=== PATIENT | male | born 1950 | race Caucasian/White ===

== ENCOUNTER 2017-04-03 05:37 | Emergency (ER) | payer MEDICARE ==
[~2017-04-03] VITALS: Ht 182.9 cm; Wt 90.7 kg
[~2017-04-03 05:37] MED LIST: TADA2.5T PO
--- NOTE | 2017-04-03 05:53 | ED Fall/Injury ---
General Chief Complaint: Laceration Stated Complaint: FALL,HEAD INJURY Source: patient, spouse Exam Limitations: no limitations (CLIFFORD GRIGSBY) History of Present Illness Time seen by provider: 05:43 Initial Comments Patient has ER by private conveyance with his because he had a fall just prior to arrival. He said he is experiencing some sharp cramp-like pain in the lower abdomen so he got up to go to the bathroom before going to work. He got up to go to the bathroom but was unable to have a bowel movement; he continued to have some pain as he started to stand up and subsequently the pain caused him to double over and fall forward landing with his forehead against the tile floor. He is not sure if he passed out but he remembers hitting the floor. He remembers lying there and he had to have his help him get up because he was weak after the fall. He had no nausea, shortness of breath, chest pain, cough, fevers or chills. The abdominal cramping pain has since gone away however he split his forehead open. He does not remember the last time he had a tetanus shot; he was certain it was more than 5 years ago. Patient states he had a radical discectomy years ago and after the fall his left side of his neck is hurting and he is sure he has aggravated his old surgery. (CLIFFORD GRIGSBY) Allergies and Home Medications Allergies Coded Allergies: No Known Drug Allergies (Unverified , 02/23/12) Home Medications Tadalafil 2.5 Mg Tablet, 2.5 MG PO PRN, (Reported) Constitutional: No chills, No dizziness, No fever Eyes: Denies Blindness, Denies Blurred Vision, Denies Drainage, Denies Decreased Acuity Ears, Nose, Mouth, Throat: denies ear pain, denies ear discharge, denies nose discharge, denies epistaxis Respiratory: No cough, No short of breath Cardiovascular: No chest pain, No edema, No palpitations Gastrointestinal: abdominal pain, No constipation, No diarrhea, No nausea, No vomiting Genitourinary: No discharge Musculoskeletal: No back pain, No joint pain Skin: No dryness, No pruritus, No rash Psychiatric/Neurological: Denies Headache, Denies Numbness (CLIFFORD GRIGSBY) Past Gledofp-Nkjydd-Rnhtvj Hx Patient Social History Alcohol Use: Occasionally Uses Recreational Drug Use: No Smoking Status: Never a Smoker Recent Foreign Travel: No Contact w/Someone Who Travel: No (CLIFFORD GRIGSBY) Physical Exam Vital Signs Vital Sign - Last 12Hours 04/03/17 05:48 Temp 97.1 Pulse 76 Resp 16 B/P (MAP) 116/80 Pulse Ox 98 O2 Delivery Room Air (SCARLET PACE MD) Vital Signs Capillary Refill : (CLIFFORD GRIGSBY) General Appearance: WD/WN, mild distress HEENT: PERRL/EOMI, normal ENT inspection, TMs normal, pharynx normal Neck: full range of motion, supple, normal inspection, tender lateral (left side) Cardiovascular: normal peripheral pulses, regular rate, rhythm, no edema, no murmur Respiratory: chest non-tender, lungs clear, normal breath sounds, no respiratory distress Gastrointestinal: normal bowel sounds, non tender, soft Extremities: normal inspection, normal capillary refill Neurologic/Psychiatric: 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, no motor/sensory deficits, alert, normal mood/affect, oriented x 3 Skin: normal color, warm/dry Lymphatic: no adenopathy (CLIFFORD GRIGSBY) Laceration Repair : Wound Location: Scalp (superior forehead midline) Wound Length (cm): 3 Wound's Depth, Shape: linear, sub Q Wound Explored: clean Irrigated w/ Saline (ccs): 50 Betadine Prep?: No (chlorhexidine soap water) Anesthesia: 1% Lidocaine Volume Anesthetic (ccs): 3 Wound Debrided: minimal Suture: Ethlion Suture Size: 3-0 Number of Sutures: 5 Progress Patient's wound was cleaned with chlorhexidine soap water and then infiltrated and a ring block fashion with 1% lidocaine. As soon as he was ascertained to be numb he was draped in the usual fashion and 3-0 Ethilon interrupted simple stitches were placed 5. Patient tolerated procedure well. (CLIFFORD GRIGSBY) Progress/Results/Core Measures Results/Orders Medications Given in ED Current Medications Medications Dose Ordered Sig/Karla Route Start Time Stop Time Status Last Admin Dose Admin Diphtheria/ Tetanus/Acell Pertussis 0.5 ml ONCE ONCE IM 04/03/17 06:00 04/03/17 06:01 DC 04/03/17 05:56 0.5 ML Lidocaine HCl 20 ml ONCE ONCE INJ 04/03/17 06:00 04/03/17 06:01 DC 04/03/17 05:57 20 ML (SCARLET PACE MD) Vital Signs/I&O Vital Sign - Last 12Hours 04/03/17 05:48 Temp 97.1 Pulse 76 Resp 16 B/P (MAP) 116/80 Pulse Ox 98 O2 Delivery Room Air (SCARLET PACE MD) Progress Note : Progress Note Care of this patient was assumed from Dr. Grigsby at approximately 06:15. Patient had no complaints except for minor aching of the neck and shoulder girdle. Wound was repaired by Dr. Grigsby. Patient was held for CT results. CT revealed no acute injury. Patient was discharged home in stable condition. Patient received a tetanus booster prior to dismissal. He had no further abdominal symptoms during his ER stay. (SCARLET PACE MD) Diagnostic Imaging Diagonstic Imaging: CT Plain Films/CT/US/NM/MRI: c-spine, head Reviewed: Reviewed Night Ed Study, Reviewed by Me (CLIFFORD GRIGSBY) Comments CT scan reviewed by me and report reviewed. See report below: NAME: JIN ORDOÑEZ [facility] REC#: [id number] PT STATUS: REG ER : 1950 PHYSICIAN: CLIFFORD GRIGSBY MD ADMIT DATE: 04/03/17/ER Draft Date of Exam:04/03/17 CT HEAD/CERVICAL SPINE WO PROCEDURE: CT head and CT cervical spine without contrast. TECHNIQUE: Multiple contiguous axial images were obtained through the brain and cervical spine without the use of intravenous contrast. Sagittal and coronal reformations through the cervical spine were then performed. INDICATION: Fall. Head injury. COMPARISON: None FINDINGS: Head CT: No acute intracranial hemorrhage, mass effect or edema is seen. The delacruz-white junction is preserved. Ventricles appear normal. No focal abnormality is seen. There is some mucosal thickening in the ethmoid sinuses. There is a small soft tissue hematoma over the frontal region near the midline. Cervical spine CT: No acute fracture, malalignment or osseous destructive process. Vertebral body heights are maintained. There are postoperative changes of anterior fusion C5/C6. There is disc space narrowing and spurring predominantly at C6/C7 with posterior disc osteophyte complex resulting in some central and moderate to severe foraminal narrowing. No prevertebral soft tissue abnormality is seen. IMPRESSION: 1. No evidence of an acute intracranial abnormality. Scalp hematoma. 2. No evidence of an acute cervical spine abnormality. Postoperative changes at C5/C6 and degenerative changes at C6/C7. Dictated on workstation # [id number] Dict: 04/03/17 0629 Trans: 04/03/17 0701 [facility] [phone] Interpreted by: KWABENA HILARIO DO (SCARLET PACE MD) Departure Impression Impression: Primary Impression: Fall Qualified Codes: W19.XXXA - Unspecified fall, initial encounter Additional Impressions: Forehead laceration Qualified Codes: S01.81XA - Laceration without foreign body of other part of head, initial encounter Traumatic hematoma of forehead Qualified Codes: S00.83XA - Contusion of other part of head, initial encounter Disposition: 01 HOME, SELF-CARE Condition: Stable Departure-Patient Inst. Referrals: AUREA STALLWORTH DO (PCP/Family) Primary Care Physician Patient Instructions: HEMATOMA, Laceration Repair With Stitches (DC) Add. Discharge Instructions: Please plan to follow up either in the ER or with your primary care physician in 5-7 days (04/08/17 through 04/10/17). Keep the wound clean with soap and water. Apply a small amount of Vaseline to keep the skin edges moist. Do not submerge your until sutures are removed. It is okay to shower and allow shampoo or soap water to just run over the wound. Monitor the wound for signs of infection such as increasing redness, increasing swelling, puslike drainage, increasing pain, or fever. Return to care if you notice these symptoms. You may take Tylenol (acetaminophen) and/or ibuprofen for pain. All discharge instructions reviewed with patient and/or family. Voiced understanding. Copy Copies To 1: AUREA STALLWORTH TITUS J Apr 03, 2017 05:53 SCARLET PACE MD Apr 03, 2017 07:08
[2017-04-03] MEDS ORDERED: TETANUS,DIPTH,PERTUSS P/F (BOOSTRIX) 0.5 ML VIAL IM ONE (06:00)
[2017-04-03] MEDS ORDERED: LIDOCAINE 1% INJ 20 ML (XYLOCAINE) VIAL INJ ONE (06:00)
--- NOTE | 2017-04-03 07:01 | Diagnostic Imaging Report ---
PROCEDURE: CT head and CT cervical spine without contrast. TECHNIQUE: Multiple contiguous axial images were obtained through the brain and cervical spine without the use of intravenous contrast. Sagittal and coronal reformations through the cervical spine were then performed. INDICATION: Fall. Head injury. COMPARISON: None FINDINGS: Head CT: No acute intracranial hemorrhage, mass effect or edema is seen. The delacruz-white junction is preserved. Ventricles appear normal. No focal abnormality is seen. There is some mucosal thickening in the ethmoid sinuses. There is a small soft tissue hematoma over the frontal region near the midline. Cervical spine CT: No acute fracture, malalignment or osseous destructive process. Vertebral body heights are maintained. There are postoperative changes of anterior fusion C5/C6. There is disc space narrowing and spurring predominantly at C6/C7 with posterior disc osteophyte complex resulting in some central and moderate to severe foraminal narrowing. No prevertebral soft tissue abnormality is seen. IMPRESSION: 1. No evidence of an acute intracranial abnormality. Scalp hematoma. 2. No evidence of an acute cervical spine abnormality. Postoperative changes at C5/C6 and degenerative changes at C6/C7. Dictated by: Dictated on workstation # [id number]
[2017-04-03 07:09] VITALS: BP 125/72
== END 2017-04-03 07:09 | disposition home or self-care (01) ==
LOC: EDUNIT# 05:37 → ER 05:39
DX: S01.01XA Laceration without foreign body of scalp, initial encounter (principal); Z98.1 Arthrodesis status; W01.198A Fall on same level from slipping, tripping and stumbling with subsequent striking against other object, initial encounter; Y92.002 Bathroom of unspecified non-institutional (private) residence as the place of occurrence of the external cause
CPT/HCPCS: 12011; 70450; 72125; 90715

== ENCOUNTER 2017-04-10 06:19 | Emergency (ER) | payer MEDICARE ==
[~2017-04-10] VITALS: Ht 182.9 cm; Wt 90.7 kg
[2017-04-10 06:36] VITALS: BP 109/63
== END 2017-04-10 06:38 | disposition home or self-care (01) ==
LOC: EDUNIT# 06:19 → ER 06:22
DX: S01.01XD Laceration without foreign body of scalp, subsequent encounter (principal); W01.198D Fall on same level from slipping, tripping and stumbling with subsequent striking against other object, subsequent encounter

== ENCOUNTER 2017-12-28 05:30 | Outpatient (CLI) | payer MEDICARE ==
[~2017-12-28] VITALS: Ht 182.9 cm; Wt 90.7 kg
== END 2017-12-28 09:42 ==
LOC: PREOP 05:30
PROVIDERS: ATTEND Internal Medicine
DX: Z01.818 Encounter for other preprocedural examination (principal); Z12.11 Encounter for screening for malignant neoplasm of colon; Z86.010 Personal history of colon polyps

== ENCOUNTER 2018-01-04 07:30 | Day surgery (SDC) | payer MEDICARE ==
--- NOTE | 2017-12-18 15:04 | HISTORY AND PHYSICAL ---
DATE OF SERVICE: COLONOSCOPY HISTORY AND PHYSICAL HISTORY OF PRESENT ILLNESS: The patient is a 67-year-old white male referred by Dr. Flores for surveillance colonoscopy. I first performed colonoscopy on him in 2011. At that time, he had 2 polyps removed, a tubular adenoma from the mid ascending colon and a tubular adenoma from the proximal sigmoid colon. He is referred for surveillance colonoscopy. In the interval, he reports that he was diagnosed with prostate cancer. He underwent prostatectomy and has done well since. He also underwent a C4-C5 disk removal with replacements with an artificial disk in March 2013. He has had no significant problems since. He has no past history of cardiovascular or pulmonary disease. He denies bowel habit change, abdominal pain, bright red blood per rectum or melena. He denies dyspnea on exertion, orthopnea, PND, pedal edema or chest pain. PAST MEDICAL HISTORY: Significant for the aforementioned prostate cancer. He is now roughly 9 years out from treatments and cervical diskectomy with artificial disk replacement for cervical radiculopathy. He is currently taking Cialis for erectile dysfunction and is on monthly B12 injections, reporting no other medication. He reports no known medical allergies. 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 PAST SURGICAL HISTORY: As noted above. PHYSICAL EXAMINATION: GENERAL: Reveals a normal weight white male, appears to be in no acute distress. VITAL SIGNS: Blood pressure 122/82, weight is stable at 203.8 pounds compared to last office weight. He is over 6 feet tall. Heart rate 72 and regular. HEENT: Unremarkable. He has a Mallampati class 2 oropharyngeal configuration. Oral cavity is clear, no erythema or exudate are noted. NECK: Revealed no JVD, adenopathy or bruits. CHEST: Clear to auscultation. CARDIOVASCULAR: Reveals regular rate and rhythm without murmur, S3 or S4. ABDOMEN: Soft, supple without mass, organomegaly or tenderness. RECTAL: Deferred at the time of the procedure. EXTREMITIES: Reveal no cyanosis, clubbing or edema. ASSESSMENT: The patient is set up for screening colonoscopy on 01/04/2018. Prep instructions with Schuler-prep kit were given and questions were answered. I thank you for the referral of this pleasant gentleman. Job ID: [id number] DocumentID: [id number] Dictated Date: 12/18/2017 12:04:46 Certified Corporate Travel Executive Date: 12/18/2017 12:53:43 Dictated By: SAM WALTON MD
[~2018-01-04] VITALS: Ht 182.9 cm; Wt 90.7 kg
[2018-01-04] MEDS ORDERED: D5 LR IV SOLUTION 1,000 ML IV ONE (07:33)
[2018-01-04] MEDS ORDERED: D5 LR IV SOLUTION 1,000 ML IV STA (07:52)
[2018-01-04 07:56] VITALS: BP 136/84
[2018-01-04] MEDS ORDERED: LIDOCAINE JELLY 2% (XYLOCAINE) 5 ML TUBE MM PRN (08:00)
[2018-01-04] MEDS ORDERED: MIDAZOLAM 2 MG/2 ML (VERSED) VIAL IVP PRN (08:00)
--- NOTE | 2018-01-04 08:11 | Pre-Op Note & Conscious Sedat ---
Pre-Operative Progress Note H&P Reviewed The H&P was reviewed, patient examined and no changes noted. Date H&P Reviewed: Jan 04, 2018 Time H&P Reviewed: 08:00 Conscious Sedation Pre-Proced ASA Class: 2 Airway Mallampati Classification: (poarch appropriate class) I. II. III, IV Lungs Heart ASA score ASA 1: a normal healthy patient ASA 2: a patient with a mild systemic disease (mid diabetes, controlled hypertension, obesity ASA 3: a patient with a severe systemic disease that limits activity (angina , COPD, prior Myocardial infarction) ASA 4: a patient with an incapacitating disease that is a constant threat to life (CHF, renal failure) ASA 5: a moribund patient not expected to survive 24 hrs. (ruptured aneurysm) ASA 6: a declared brain patient whose organs are being harvested. For emergent operations, add the letter E after the classification Grade 2 Sedation Plan: Analgesia, Amnesia, Plan communicated to team members, Discussed options with patient/fam, Discussed risks with patient/fam Note The patient is an appropriate candidate to undergo the planned procedure, sedation, and anesthesia. The patient immediately re-assessed prior to indication. SAM WALTON MD Jan 04, 2018 08:11
[2018-01-04] MEDS ORDERED: fentaNYL INJECTION 100 MCG/2 ML AMP ONE (08:33)
[2018-01-04] MEDS ORDERED: LIDOCAINE JELLY 2% (XYLOCAINE) 5 ML TUBE ONE (08:33)
[2018-01-04] MEDS ORDERED: MIDAZOLAM 2 MG/2 ML (VERSED) VIAL ONE ×2 (08:33)
[2018-01-04] MEDS: fentaNYL INJECTION 100 MCG/2 ML AMP IVP PRN ×2 (08:35→08:39)
[2018-01-04 09:20] VITALS: BP 127/70
[2018-01-04 09:35] VITALS: BP 127/70
[2018-01-04 09:36] VITALS: BP 123/87
--- NOTE | 2018-01-04 15:11 | OPERATIVE REPORT ---
DATE OF SERVICE: 01/04/2018 COLONOSCOPY SUMMARY INDICATION FOR PROCEDURE: Screening colonoscopy. DESCRIPTION OF PROCEDURE: The patient was placed in the left lateral decubitus position. Prior to undergoing colonoscopy, digital rectal evaluation performed. No evidence for internal or external hemorrhoids were noted. Anal sphincter tone was normal and the perianal reflex was intact. Prostate is absent on digital inspection. No nodules were noted. The colonoscope was then inserted into the rectum under direct visualization and advanced to the cecum. The cecum was identified by identification of the ileocecal valve and cecal strap. Photographic documentation was obtained. Careful inspection was made as colonoscope withdrawn. FINDINGS: There was no evidence for internal or external hemorrhoids and the rectum was unremarkable. Sigmoid colon revealed moderate number of medium and several large diverticulum without evidence for diverticulitis. Mild to moderate haustral hypertrophy was noted as well. The descending colon was unremarkable. Present at the splenic flexure was a diminutive 4 mm sessile polyp that was photographed and biopsied and ablated with no subsequent blood loss. The transverse colon, hepatic flexure, ascending colon and cecum were unremarkable. ASSESSMENT: 1. Moderate diverticular disease confined to the sigmoid colon was present without evidence for diverticulitis. 2. A diminutive sessile polyp was removed via hot forceps from the splenic flexure. No other abnormalities were noted with surgical absence of the prostate and otherwise unremarkable HEMALATHA. As long as there is no surprise on histopathology report, I would advocate consideration for repeat surveillance colonoscopy in 5 years. I thank you for the referral of this pleasant gentleman. Job ID: [id number] DocumentID: [id number] Dictated Date: 01/04/2018 10:42:46 Accounts Receivable Analyst Date: 01/04/2018 15:10:57 Dictated By: SAM WALTON MD [facility]
== END 2018-01-04 09:45 | disposition home or self-care (01) ==
LOC: ENDO 07:30
PROVIDERS: ATTEND Internal Medicine
DX: Z12.11 Encounter for screening for malignant neoplasm of colon (principal); K63.5 Polyp of colon; K57.30 Diverticulosis of large intestine without perforation or abscess without bleeding; Z86.010 Personal history of colon polyps; Z85.46 Personal history of malignant neoplasm of prostate